=== PATIENT | male | born 1965 | race Caucasian/White ===

== ENCOUNTER 2017-01-30 20:58 | Emergency (ER) | payer MEDICAID, OTHER ==
[~2017-01-30] VITALS: Ht 180.3 cm; Wt 92.5 kg
[2017-01-30 21:03] VITALS: Ht 180.3 cm; Wt 92.5 kg
[2017-01-30] MEDS ORDERED: HYDROCODONE/APAP (5/325) TAB PO ONE (21:30)
--- NOTE | 2017-01-30 21:38 | ERD ---
ER Documentation Chief Complaint Date/Time DATE: 01/30/17 TIME: 21:36 Chief Complaint fell going downstairs around 11 am, c/o pain right forearm HPI Patient is a 51-year-old male who states he accidentally fell down some stairs today and has pain in his right forearm and wrist. He denies any head injury or KO. He has an abrasion to the right forearm. Secondarily he is also complaining of having intermittent epigastric pain over the past week with diarrhea. Denies any blood in the stool. Denies any nausea or vomiting. Denies any fever. Denies any urinary symptoms. ROS All systems reviewed and are negative except as per history of present illness. Medications Home Meds Active Scripts Hydrocodone/Acetaminophen (C[place]hire 5-325 Tablet) 1 Each Tablet, 1 TAB PO Q6H Y for PAIN, #20 TAB Prov:BRANDY KING PA-C 01/30/17 Ibuprofen* (Motrin*) 600 Mg Tab, 600 MG PO Q6, #30 TAB Prov:BRANDY KING PA-C 01/30/17 Allergies Allergies: Coded Allergies: niacin (Verified Allergy, Unknown, palpitation, 01/30/17) PMhx/Soc History of Surgery: Yes (HEMROHOID SX) Anesthesia Reaction: No Hx Neurological Disorder: No Hx Respiratory Disorders: No Hx Cardiac Disorders: Yes (MV PROLAPSE) Hx Psychiatric Problems: No Hx Miscellaneous Medical Probl: No Hx Alcohol Use: No Hx Substance Use: No Hx Tobacco Use: No Smoking Status: Never smoker FmHx Family History: No diabetes Physical Exam Vitals Vital Signs Date Time Temp Pulse Resp B/P Pulse Ox O2 Delivery O2 Flow Rate FiO2 01/30/17 21:03 98.2 72 20 137/94 97 Physical Exam General: well developed, well nourished, alert, nontoxic, no distress Head: normocephalic, atraumatic Neck: Supple, nontender, no lymphadenopathy, no midline tenderness Respiratory: Clear to auscaultation bilaterally, speaks in full sentences, no use of accesory muscles or labored breathing, no rales, ronchi, or wheezing Cardiovascular: RRR, No murmurs GI: soft, non tender, non distended, negative murphys sign, negative mcburneys point tenderness, no cva tenderness bilaterally, no rebound or guarding Back: no midline tenderness, no step offs or bony abnormalities, sensation to light touch in tact Extremities: Right forearm has a superficial abrasion on the posterior proximal side, no active bleeding, patient has full range of motion in the elbow without any tenderness throughout the elbow. Wrist, no bony abnormalities Result Diagram: 01/30/17215101/30/172151 Results 24 hrs Laboratory Tests Test 01/30/17 21:52 White Blood Count 6.210^3/ul Red Blood Count 4.6810^6/ul Hemoglobin 14.2g/dl Hematocrit 41.9% Mean Corpuscular Volume 89.5fl Mean Corpuscular Hemoglobin 30.3pg Mean Corpuscular Hemoglobin Concent 33.9g/dl Red Cell Distribution Width 13.1% Platelet Count 34696^3/UL Mean Platelet Volume 10.5fl Neutrophils % 56.4% Lymphocytes % 30.0% Monocytes % 10.1% Eosinophils % 2.9% Basophils % 0.3% Nucleated Red Blood Cells % 0.0/100WBC Neutrophils # 3.510^3/ul Lymphocytes # 1.910^3/ul Monocytes # 0.610^3/ul Eosinophils # 0.210^3/ul Basophils # 0.010^3/ul Nucleated Red Blood Cells # 0.010^3/ul Sodium Level 143mmol/L Potassium Level 4.7mmol/L Chloride Level 99mmol/L Carbon Dioxide Level 31mmol/L Anion Gap 18 Blood Urea Nitrogen 14mg/dl Creatinine 1.06mg/dl Glucose Level 96mg/dl Calcium Level 9.6mg/dl Total Bilirubin 0.4mg/dl Direct Bilirubin 0.00mg/dl Indirect Bilirubin 0.4mg/dl Aspartate Amino Transf (AST/SGOT) 27IU/L Alanine Aminotransferase (ALT/SGPT) 34IU/L Alkaline Phosphatase 58IU/L Total Protein 8.1g/dl Albumin 4.9g/dl Globulin 3.20g/dl Albumin/Globulin Ratio 1.53 Lipase 61U/L Current Medications Medications (Trade) Dose Ordered Sig/Alisha Route PRN Reason Start Time Stop Time Status Last Admin Dose Admin Acetaminophen/ Hydrocodone Bitart ([place] (5/325)) 1 tab ONCE ONCE PO 01/30/17 21:30 01/30/17 21:31 DC 01/30/17 21:35 Procedures/MDM 51-year-old male presents after fall and has right wrist and forearm pain. He is neurovascularly intact. He was given Cheshire and x-rays were ordered. He is also been claimed complaining of epigastric pain. His GI examination is benign he has no tenderness throughout his entire abdomen including over his appendix, over his gallbladder, he has no CVA tenderness. He is afebrile has not had any nausea or vomiting. I order abdominal labs. Labs and x-ray normal. Patient discharged with ibuprofen and [place] for pain. Recommended this patient follow up with her primary care doctor within 48 hours or return to the emergency room for any worsening of symptoms. However this time I do believe there is suitable for outpatient management. I answered all their questions and they agreed with the plan and were discharged home. Departure Diagnosis: Primary Impression: Abdominal pain Additional Impression: Arm contusion Condition: Stable BRANDY KING PA-C Jan 30, 2017 21:38
[2017-01-30 22:03] LABS: BASOPHILS % 0.3 % (0.0-2.0); EOSINOPHILS # 0.2 10^3/ul (0.0-0.5); EOSINOPHILS % 2.9 % (0.0-7.0); HEMATOCRIT 41.9 % (42.0-52.0); HEMOGLOBIN 14.2 g/dl (14.0-18.0); LYMPHOCYTES # 1.9 10^3/ul (0.8-2.9); MEAN CORPUSCULAR HEMOGLOBIN 30.3 pg (29.0-33.0); MEAN CORPUSCULAR HGB CONC 33.9 g/dl (32.0-37.0); MEAN CORPUSCULAR VOLUME 89.5 fl (82.0-101.0); MEAN PLATELET VOLUME 10.5 fl (7.4-10.4); MONOCYTE # 0.6 10^3/ul (0.3-0.9); MONOCYTES % 10.1 % (0.0-11.0); NEUTROPHIL # 3.5 10^3/ul (1.6-7.5); NEUTROPHILS % 56.4 % (39.0-77.0); PLATELET COUNT 193 10^3/UL (140-415); RED BLOOD COUNT 4.68 10^6/ul (4.70-6.10); RED CELL DISTRIBUTION WIDTH 13.1 % (11.5-14.5); WHITE BLOOD COUNT 6.2 10^3/ul (4.8-10.8)
[2017-01-30 22:30] LABS: ALBUMIN 4.9 g/dl (3.3-4.9); ALBUMIN/GLOBULIN RATIO 1.53; BILIRUBIN,INDIRECT 0.4 mg/dl (0-1.1); BILIRUBIN,TOTAL 0.4 mg/dl (0.2-1.3); CALCIUM 9.6 mg/dl (8.4-10.2); CREATININE 1.06 mg/dl (0.61-1.24); POTASSIUM 4.7 mmol/L (3.5-5.1); TOTAL PROTEIN 8.1 g/dl (6.1-8.1)
--- NOTE | 2017-01-30 22:36 | RADRPT ---
PROCEDURE: Right forearm series CLINICAL INDICATION: Pain status post trauma TECHNIQUE: AP and lateral right forearm COMPARISON: None available FINDINGS: No acute fractures or dislocations are present. Normal mineralization is present and joint spaces a re well maintained. An early olecranon spur is present and correlate with mild olecranon bursitis. No radiodense foreign bodies are noted. IMPRESSION: 1. No acute fractures or dislocations 2. Olecranon spur and correlate with mild olecranon bursitis RPTAT: HDC .Neela Mo MD, MD Date Time Electronically viewed and signed by .Neela Mo MD, on 01/30/2017 22:36 .C/
--- NOTE | 2017-01-30 22:42 | RADRPT ---
PROCEDURE: XR wrist. CLINICAL INDICATION: Trauma. TECHNIQUE: AP, lateral and oblique views of the right wrist was obtained. COMPARISON: There are no similar studies submitted for comparison. FINDINGS: There is no acute fracture or dislocation. No destructive osseous lesions are seen. The joint spaces are unremarkable. IMPRESSION: No acute fracture or dislocation. RPTAT: HIKT .Bigg Tabares MD, MD Date Time Electronically viewed and signed by .Bigg Tabares MD, on 01/30/2017 22:42 .T/
[2017-01-30] MEDS ORDERED: HYDR-906 PO (22:49)
[2017-01-30] MEDS ORDERED: IBUP-1542 PO (22:49)
[2017-01-30 22:57] VITALS: BP 128/88; PULSE 88; RESP 18
== END 2017-01-30 22:58 | disposition home or self-care (01) ==
LOC: FTE 20:58
DX: R10.9 Unspecified abdominal pain (principal); S40.021A Contusion of right upper arm, initial encounter; W10.9XXA Fall (on) (from) unspecified stairs and steps, initial encounter; Y92.9 Unspecified place or not applicable
CPT/HCPCS: 73090; 73110; 80053; 83690; 85025; Z7610

== ENCOUNTER 2017-04-21 18:36 | Emergency (ER) | payer MEDICAID ==
[~2017-04-21] VITALS: Ht 180.3 cm; Wt 97.0 kg
[~2017-04-21 18:36] MED LIST: HYDR-906 PO; IBUP-1542 PO
[2017-04-21 19:01] VITALS: Ht 180.3 cm; Wt 97.0 kg
[2017-04-21] MEDS ORDERED: KETOROLAC 30 MG INJ IM STA (22:18)
[2017-04-21] MEDS ORDERED: predniSONE 20 MG TAB PO ONE (22:30)
--- NOTE | 2017-04-21 22:58 | ERD ---
ER Documentation Chief Complaint Date/Time DATE: 04/21/17 TIME: 22:57 Chief Complaint c/o L4-L5 bulging discs. Has MRI. "Tweeked back." HPI 51-year-old male who presents the emergency department today complaining of back pain. Patient states that in 1994 he had previously had herniated disks in back and went to physical therapy and had good long-term improvement. He states that 2 months ago he reinjured his back and has had intermittent pain since that time but worse over the past couple of days. States that he had x- rays done and was able to also get a chiropractor to order an MRI for him. States that he has multiple areas of disc herniations. It is that he does have pain in his legs however denies any fevers or chills or loss of bowel or bladder control. States he would like referral to a physician as well as pain management. ROS All systems reviewed and are negative except as per history of present illness. Medications Home Meds Active Scripts Prednisone* (Prednisone*) 20 Mg Tab, 40 MG PO DAILY for 4 Days, TAB Prov:JOSE MAYES PA-C 04/21/17 Cyclobenzaprine Hcl* (Cyclobenzaprine Hcl*) 10 Mg Tablet, 10 MG PO QHS, #7 TAB Prov:JOSE MAYES PA-C 04/21/17 Naproxen* (Naprosyn*) 500 Mg Tablet, 500 MG PO BID Y for PAIN AND/OR INFLAMMATION, #30 TAB Prov:JOSE MAYES PA-C 04/21/17 Hydrocodone/Acetaminophen ([place] 5-325 Tablet) 1 Each Tablet, 1 TAB PO Q6H Y for PAIN, #15 TAB Prov:JOSE MAYES PA-C 04/21/17 Hydrocodone/Acetaminophen ([place] 5-325 Tablet) 1 Each Tablet, 1 TAB PO Q6H Y for PAIN, #20 TAB Prov:BRANDY KING PA-C 01/30/17 Ibuprofen* (Motrin*) 600 Mg Tab, 600 MG PO Q6, #30 TAB Prov:BRANDY KING PA-C 01/30/17 Allergies Allergies: Coded Allergies: niacin (Verified Allergy, Unknown, palpitation, 01/30/17) PMhx/Soc History of Surgery: Yes (HEMROHOID SX) Anesthesia Reaction: No Hx Neurological Disorder: No Hx Respiratory Disorders: No Hx Cardiac Disorders: Yes (MV PROLAPSE) Hx Psychiatric Problems: No Hx Miscellaneous Medical Probl: No Hx Alcohol Use: No Hx Substance Use: No Hx Tobacco Use: No Smoking Status: Never smoker Physical Exam Vitals Vital Signs Date Time Temp Pulse Resp B/P Pulse Ox O2 Delivery O2 Flow Rate FiO2 04/21/17 19:01 98.7 65 18 132/89 98 Physical Exam Const: NAD Head: Atraumatic Eyes: Normal Conjunctiva ENT: Normal External Ears, Nose and Mouth. Neck: Full range of motion..~ No meningismus. Resp: Clear to auscultation bilaterally Cardio: Regular rate and rhythm, no murmurs Abd: Soft, non tender, non distended. Normal bowel sounds Skin: No petechiae or rashes Back: Lumbar spine midline tenderness. No flank or CVA tenderness. Ext: No cyanosis, or edema Neur: Awake and alert Psych: Normal Mood and Affect Results 24 hrs Current Medications Medications (Trade) Dose Ordered Sig/Alisha Route PRN Reason Start Time Stop Time Status Last Admin Dose Admin Prednisone (Prednisone) 60 mg ONCE ONCE PO 04/21/17 22:30 04/21/17 22:31 DC 04/21/17 22:28 Ketorolac Tromethamine (Toradol) 30 mg ONCE STAT IM 04/21/17 22:18 04/21/17 22:20 DC 04/21/17 22:28 Procedures/MDM This is a 51-year-old male who presents to the emergency department today complaining of back pain. Has history of back pain in the very distant past and again recently in the past couple of days to "tweaking his back".. Patient did provide paperwork and copies of his x-rays and MRIs. Patient has had no new trauma and I do not feel he requires repeat imaging at this time. Low suspicion for acute fracture or dislocation. Patient is afebrile and otherwise well-appearing. They have no loss of bowel or bladder control. Low suspicion for cauda equina or abscess. Is at this time is consistent with acute on chronic secondary to degenerative disc disease and herniated disc Patient was given Toradol and prednisone here in the emergency department and pain improved. Patient will be given a prescription for [place], Naprosyn and prednisone and Flexeril for home. I did do a cures report and there is no concern at this time for seeking behavior. Patient was given referral information for local clinics as well as [facility] and [facility] telecommunications specialist. At this time the patient is stable for discharge and outpatient management. Patient should follow up with their PCP in the next 1-2 days. They may return to the emergency department sooner for any persistent or worsening of symptoms. Patient understood and agreed with the plan. Departure Diagnosis: Primary Impression: Back pain Back pain location: low back pain Chronicity: unspecified Back pain laterality: midline Sciatica presence: with sciatica Sciatica laterality: bilateral sciatica Qualified Code: M54.41 - Midline low back pain with bilateral sciatica, unspecified chronicity Condition: JOSE Salcedo PA-C Apr 21, 2017 22:58
[2017-04-21] MEDS ORDERED: HYDR-906 PO (22:59)
[2017-04-21] MEDS ORDERED: NAPR-260 PO (23:00)
[2017-04-21] MEDS ORDERED: CYCL-319 PO (23:00)
[2017-04-21] MEDS ORDERED: PRED20TA PO (23:00)
== END 2017-04-21 23:10 | disposition home or self-care (01) ==
LOC: FTE 18:36
DX: M54.41 Lumbago with sciatica, right side (principal)
CPT/HCPCS: 96372; J1885; J7512; Z7502